=== PATIENT | female | born 1935 | race Caucasian/White ===

== ENCOUNTER 2023-01-19 05:55 | Day surgery (SDC) | payer OTHER ==
[2023-01-19] MEDS: LIDOCAINE 1% MPF 30 ML VIAL ONE ×2 (06:35→08:29)
[2023-01-19] MEDS ORDERED: CEFAZOLIN SODIUM 2 GM/VIAL ONE (06:42)
[2023-01-19] MEDS ORDERED: Ringers Lactate 1,000 ML IV ONE (06:42)
[2023-01-19] MEDS ORDERED: FENTANYL CITR 100 MCG/2 ML ONE (07:45)
[2023-01-19] MEDS ORDERED: propofoL 200 MG/20 ML VIAL IV ONE (07:45)
[2023-01-19] MEDS ORDERED: KETOROLAC 30 MG/ML INJ ONE (07:46)
[2023-01-19] MEDS ORDERED: LIDOCAINE 2% MPF 5 ML VIAL ONE (07:46)
[2023-01-19] MEDS ORDERED: ONDANSETRON 4 MG/2 ML VIAL ONE (07:46)
[2023-01-19] MEDS ORDERED: SUCCINYLCHOLINE 20 MG/ML (10 ML) IV ONE (07:58)
--- NOTE | 2023-01-19 09:49 | RAD REPORT ---
EXAM DESCRIPTION: RAD - Fluoroscopy <1 Hour - 01/19/2023 9:04 am CLINICAL HISTORY: T11 KYPHOPLASTY COMPARISON: No comparisons FINDINGS/IMPRESSION: Twenty intraoperative fluoroscopic images were submitted for a percutaneous kyp hoplasty at T11. Fluoro time: 1.3 minutes Cumulative dose: 10.6 mGy
[2023-01-19 10:20] VITALS: O2SAT 99
[2023-01-19 10:25] VITALS: BP 154/69; TEMP 98.9
== END 2023-01-19 10:33 | disposition home or self-care (01) ==
LOC: PRE 05:55 → OR 10:33
PROVIDERS: ATTEND Orthopaedic Surgery
PROC: 0PU43JZ Supplement Thoracic Vertebra with Synthetic Substitute, Percutaneous Approach (ICD-10-PCS; 2023-01-19)
PROC: 0PS43ZZ Reposition Thoracic Vertebra, Percutaneous Approach (ICD-10-PCS; principal; 2023-01-19 08:00)
DX: M80.08XA Age-related osteoporosis with current pathological fracture, vertebra(e), initial encounter for fracture (principal); I10 Essential (primary) hypertension
CPT/HCPCS: 22513; J2704; J2001 ×2; J3010; J2405; J7120; 76000